=== PATIENT | female | born 1985 ===

== ENCOUNTER 2024-02-01 15:35 | Emergency (ER) | payer MEDICAID ==
[2024-02-01] MEDS: Acetaminophen 500 MG Tab PO ONE (18:16)
[2024-02-01] MEDS: Ketorolac 30 MG/ML SDV IM ONE (18:17)
[2024-02-01] MEDS: Take Home: Cyclobenzaprine 10 MG Tab, 4 Tab Pack PO ONE (18:34)
== END 2024-02-01 18:36 | disposition home or self-care (01) ==
LOC: EDBD → DL.ED 15:35
DX: S00.03XA Contusion of scalp, initial encounter (principal); M50.30 Other cervical disc degeneration, unspecified cervical region; Y04.0XXA Assault by unarmed brawl or fight, initial encounter
CPT/HCPCS: 70450; 72125; 81025; 96372; 99284; A9270; J1885